=== PATIENT | male | born 1985 | race Two or more races ===

== ENCOUNTER 2019-04-30 13:45 | Emergency (ER) | payer BC ==
[~2019-04-30] VITALS: Ht 177.8 cm; Wt 106.6 kg
[2019-04-30 14:13] VITALS: BP 163/124
== END 2019-04-30 15:14 | disposition home or self-care (01) ==
LOC: ER 13:45
DX: L03.811 Cellulitis of head [any part, except face] (principal); L03.221 Cellulitis of neck; I10 Essential (primary) hypertension